=== PATIENT | female | born 1975 | race Caucasian/White ===

== ENCOUNTER 2020-03-15 05:40 | Day surgery (SDC) | payer MEDICARE, MEDICAID ==
[2020-03-08 14:58] LABS: CLARITY,URINE SLIGHTLY CLOUDY (Clear); COLOR,URINE YELLOW (Yellow); GLUCOSE, URINE NEGATIVE (Neg); KETONES,URINE NEGATIVE (Neg); LEUKOCYTE ESTERASE ,URINE NEGATIVE (Neg); NITRITES, URINE NEGATIVE (Neg); OCCULT BLOOD,URINE LARGE (Neg); PH,URINE 5.5 (4.8-8.0); PROTEIN,URINE NEGATIVE (Neg); UROBILINOGEN,URINE 0.2 E.U/dL (0.2-1.0)
[2020-03-08 15:01] LABS: UA COLLECTION TYPE NON-SPECIFIED
[2020-03-08 15:02] LABS: BASOPHILS # (AUTO) 0.1 X10'3 (0-0.2); BASOPHILS % (AUTO) 0.7 % (0-1); EOSINOPHILS # (AUTO) 0.4 X10'3 (0-0.9); EOSINOPHILS % (AUTO) 3.6 % (0-6); LYMPHOCYTES # (AUTO) 2.1 X10'3 (1.1-4.8); LYMPHOCYTES % (AUTO) 17.8 % (21-51); MEAN CORPUSCULAR HGB CONC 32.1 g/dL (33.0-36.5); MEAN PLATELET VOLUME 8.8 FL (7.4-10.4); MONOCYTES # (AUTO) 0.8 X10'3 (0-0.9); MONOCYTES % (AUTO) 6.9 % (2-12); NEUTROPHILS # (AUTO) 8.4 X10'3 (1.8-7.7); PRE OP HEMATOCRIT 38.3 % (35.0-45.0); PRE OP HEMOGLOBIN 12.3 g/dL (12.0-16.0); PRE OP PLATELET COUNT 377 X10'3 (140-440); RED BLOOD COUNT 4.73 X10'6 (4.20-5.60); RED CELL DISTRIBUTION WIDTH 17.6 % (11.5-14.5)
[2020-03-08 15:06] LABS: HCG SERUM QL NEGATIVE
[2020-03-08 15:08] LABS: BACTERIA,URINE FEW /HPF (Neg); MUCUS STRANDS FEW /LPF (Neg); RBC,URINE 50-100 /HPF (0-2); SQUAMOUS EPITHELIAL CELL,UR FEW /LPF (FEW); WBC,URINE 0-4 /HPF (0-4)
[2020-03-08 15:18] LABS: ALBUMIN 3.8 G/DL (3.4-5.0); ALBUMIN/GLOBULIN RATIO 0.9 (1.1-1.5); ALKALINE PHOSPHATASE 101 IU/L (46-116); BLOOD UREA NITROGEN 16 MG/DL (7-18); CALCIUM 9.8 MG/DL (8.5-10.1); CHLORIDE 103 MMOL/L (99-107); CREATININE 0.84 MG/DL (0.40-0.90); PRE OP ALT 18 U/L (30-65); PRE OP ANION GAP 6 (8-16); PRE OP AST 13 U/L (10-37); PRE OP BILIRUB, TOTAL 0.2 MG/DL (0.0-1.0); PRE OP GLUCOSE 141 MG/DL (70-104); PRE OP POTASSIUM 4.5 MMOL/L (3.4-5.1); PRE OP SODIUM 136 MMOL/L (135-145); TOTAL CARBON DIOXIDE 26.6 MMOL/L (24-32); TOTAL PROTEIN 7.9 G/DL (6.4-8.2); eGFR 73 ML/MIN
[~2020-03-15] VITALS: Ht 177.8 cm; Wt 135.9 kg
[~2020-03-15 05:40] MED LIST: BUSP10TA11 PO; CITA20TA28 PO; FERR324T12 PO; FLUT1DIS4 INH; LAMO200T24 PO; LEVO5TAB29 PO; LYR75C PO; METF-438 PO; MIRT45TA79 PO; OMEP40CA13 PO; PREG75CA75 PO; TRAM50TA2 PO; ceFAZolin inj. 3,000 MG in normal saline 100ml IV soln 100 ML IV ONE; famotidine 20mg tablet PO ONE; ringers solution, lacted 1,000 ML IV SCH
[2020-03-15] MEDS ORDERED: LIDOcaine 1% (10mg/ml) 2ml vial ONE (06:19)
[2020-03-15] MEDS ORDERED: BUPIVAcaine/PF 2.5mg/ml (0.25%) 10ml vial ONE (06:40)
[2020-03-15] MEDS ORDERED: bacitracin 15gm ointment TP ONE ×2 (06:40→13:36)
[2020-03-15] MEDS ORDERED: ringers solution, lacted 1,000 ML IV SCH (06:56)
[2020-03-15] MEDS ORDERED: ondansetron/PF 4mg/2ml inj IV PRN (07:00)
[2020-03-15] MEDS ORDERED: fentaNYL/PF 50MCG/1 ML 2ML syringe IV PRN ×2 (07:00)
[2020-03-15] MEDS ORDERED: meperidine/PF 25mg/ml syringe IV PRN ×3 (07:00)
[2020-03-15] MEDS ORDERED: proCHLORperazine 10 MG/2 ml inj IV PRN (07:00)
[2020-03-15] MEDS ORDERED: acetaminophen 1,000mg/100ml IV 100 ML IV PRN (07:00)
[2020-03-15] MEDS ORDERED: sevoflurane 250ml liquid IH ONE (07:00)
[2020-03-15] MEDS ORDERED: midazolam 2 mg/2 ml injection ONE (07:02)
[2020-03-15] MEDS ORDERED: fentaNYL/PF 50MCG/1 ML 2ML syringe ONE (07:02)
[2020-03-15] MEDS ORDERED: propofol inj 20 ML IV ONE (07:20)
[2020-03-15] MEDS ORDERED: ondansetron/PF 4mg/2ml inj ONE (07:20)
[2020-03-15] MEDS ORDERED: LIDOcaine 2% (20mg/ml) 5ml vial ONE (07:20)
[2020-03-15] MEDS ORDERED: dexamethasone sod phosphate 4mg/ml inj. ONE (07:21)
[2020-03-15] MEDS ORDERED: BUPIVAcaine/PF 2.5 mg/ml (0.25%) 30ml vial ONE (07:28)
[2020-03-15 07:45] VITALS: BP 166/96
--- NOTE | 2020-03-15 07:45 | NUR ---
Received from OR via [facility] , accompanied by Anesthesiologist MELVIN and report given by Anesthesiolgist. PATIENT WITH 20G PIV IN RIGHT HAND RUNNING LR AT 100. DENIES PAIN. LEFT FOOT DRESSING IS CDI. WIGGLES TOES. + CAP REFILL. Addendum: 03/15/20 at 0751 by Evgeny Limon RN, RN Amended: Links added.
[2020-03-15 07:55] VITALS: BP 145/88
[2020-03-15 08:05] VITALS: BP 132/89
[2020-03-15 08:15] VITALS: BP 118/87
--- NOTE | 2020-03-15 08:25 | NUR ---
All dc criteria for discharge home has been met. IV taken out without complications. All questions answered regarding dc paperwork. Vss. Significant other present to take patient home. Dressings cdi and vital signs stable. Taken out via wheelchair to personal vehicle where patient taken home by family/friend. Addendum: 03/15/20 at 0831 by Evgeny Limon RN, RN Amended: Links added.
[2020-03-15 10:07] VITALS: BP 152/84
[2020-03-15] MEDS ORDERED: BUPIVAcaine/PF 2.5 mg/ml (0.25%) 30ml vial IJ ONE (13:35)
== END 2020-03-15 08:25 | disposition home or self-care (01) ==
LOC: PAS 05:40
PROVIDERS: ATTEND Podiatrist Foot & Ankle Surgery
DX: M67.472 Ganglion, left ankle and foot (principal); E11.9 Type 2 diabetes mellitus without complications; J44.9 Chronic obstructive pulmonary disease, unspecified; F41.9 Anxiety disorder, unspecified; F31.9 Bipolar disorder, unspecified; F43.10 Post-traumatic stress disorder, unspecified; D64.9 Anemia, unspecified; E66.01 Morbid (severe) obesity due to excess calories; Z68.41 Body mass index [BMI] 40.0-44.9, adult; Z98.84 Bariatric surgery status; Z88.5 Allergy status to narcotic agent; Z88.8 Allergy status to other drugs, medicaments and biological substances; Z79.899 Other long term (current) drug therapy; Z79.84 Long term (current) use of oral hypoglycemic drugs; Z91.09 Other allergy status, other than to drugs and biological substances; Z11.59 Encounter for screening for other viral diseases
CPT/HCPCS: 28090; 36415; 80053; 81001; 82948; 84703; 85025; A6223; J0690; J1100; J2001; J2250; J2405; J2704; J3010; J3490; U0003; 88304; A4215; A4618; A6449; A7000; J7120

== ENCOUNTER 2020-07-05 08:09 | Day surgery (SDC) | payer MEDICARE, MEDICAID ==
[2020-06-28 15:07] LABS: BASOPHILS # (AUTO) 0.1 X10'3 (0-0.2); BASOPHILS % (AUTO) 1.1 % (0-1); EOSINOPHILS # (AUTO) 0.5 X10'3 (0-0.9); EOSINOPHILS % (AUTO) 4.2 % (0-6); LYMPHOCYTES # (AUTO) 2.6 X10'3 (1.1-4.8); LYMPHOCYTES % (AUTO) 21.2 % (21-51); MEAN CORPUSCULAR HEMOGLOBIN 27.1 PG (27.0-31.0); MEAN CORPUSCULAR HGB CONC 32.6 g/dL (33.0-36.5); MEAN CORPUSCULAR VOLUME 83.2 FL (78-98); MEAN PLATELET VOLUME 8.7 FL (7.4-10.4); MONOCYTES # (AUTO) 0.9 X10'3 (0-0.9); MONOCYTES % (AUTO) 7.3 % (2-12); NEUTROPHILS # (AUTO) 8.2 X10'3 (1.8-7.7); NEUTROPHILS % (AUTO) 66.2 % (42-75); PRE OP HEMATOCRIT 37.8 % (35.0-45.0); PRE OP HEMOGLOBIN 12.3 g/dL (12.0-16.0); PRE OP PLATELET COUNT 340 X10'3 (140-440); RED BLOOD COUNT 4.54 X10'6 (4.20-5.60); RED CELL DISTRIBUTION WIDTH 14.8 % (11.5-14.5)
[2020-06-28 15:31] LABS: ALBUMIN 3.5 G/DL (3.4-5.0); ALBUMIN/GLOBULIN RATIO 0.8 (1.1-1.5); ALKALINE PHOSPHATASE 101 IU/L (46-116); BLOOD UREA NITROGEN 10 MG/DL (7-18); BUN/CREATININE RATIO 13.2 (6.6-38.0); CALCIUM 9.3 MG/DL (8.5-10.1); CHLORIDE 103 MMOL/L (99-107); CREATININE 0.76 MG/DL (0.40-0.90); PRE OP ALT 16 U/L (30-65); PRE OP ANION GAP 10 (8-16); PRE OP AST 17 U/L (10-37); PRE OP BILIRUB, TOTAL 0.1 MG/DL (0.0-1.0); PRE OP GLUCOSE 169 MG/DL (70-104); PRE OP POTASSIUM 4.4 MMOL/L (3.4-5.1); PRE OP SODIUM 136 MMOL/L (135-145); TOTAL CARBON DIOXIDE 23.2 MMOL/L (24-32); TOTAL PROTEIN 7.7 G/DL (6.4-8.2); eGFR 82 ML/MIN
[2020-06-28 15:58] LABS: HCG SERUM QL NEGATIVE
[~2020-07-05] VITALS: Ht 177.8 cm; Wt 139.0 kg
[~2020-07-05 08:09] MED LIST changes: +ACET325C6 PO; +CYCL-1 PO; -FERR324T12 PO; -LEVO5TAB29 PO; +LORA-269 PO; +SITA100T15 PO; -ceFAZolin inj. 3,000 MG in normal saline 100ml IV soln 100 ML IV ONE; +cefazolin/dext.iso 2gm/50ml 50 ML IV ONE
[2020-07-05 08:25] VITALS: BP 119/74
[2020-07-05] MEDS ORDERED: SITA100T11 PO (08:47)
[2020-07-05] MEDS ORDERED: LIDOcaine 1% (10mg/ml) 2ml vial ONE (08:50)
[2020-07-05] MEDS ORDERED: LIDOcaine 0.5% (5mg/ml) 50ml vial ONE (09:49)
[2020-07-05] MEDS ORDERED: BUPIVAcaine/PF 2.5mg/ml (0.25%) 10ml vial ONE (09:49)
[2020-07-05] MEDS ORDERED: ondansetron/PF 4mg/2ml inj IV PRN (10:15)
[2020-07-05] MEDS ORDERED: meperidine/PF 25mg/ml syringe IV PRN ×3 (10:15)
[2020-07-05] MEDS ORDERED: ringers solution, lacted 1,000 ML IV SCH (10:15)
[2020-07-05] MEDS ORDERED: proCHLORperazine 10 MG/2 ml inj IV PRN (10:15)
[2020-07-05] MEDS ORDERED: fentaNYL/PF 50MCG/1 ML 2ML syringe ONE (10:38)
[2020-07-05] MEDS ORDERED: midazolam 2 mg/2 ml injection ONE ×2 (10:44)
[2020-07-05 10:57] VITALS: BP 129/78
--- NOTE | 2020-07-05 10:57 | NUR ---
Received from OR via , accompanied by Anesthesiologist DR SANCHEZ and report given by Anesthesiolgist. AWAKE AND ADITYA PAIN. VITALS STABLE. DRESSING/SPLINT DI. FINGERS COOL AND PINK.
[2020-07-05 11:07] VITALS: BP 135/77
[2020-07-05 11:17] VITALS: BP 128/79
[2020-07-05 11:27] VITALS: BP 130/80
[2020-07-05] MEDS ORDERED: HYDROcodone/acetaminophen 10/325mg tab PO ONE (11:45)
--- NOTE | 2020-07-05 11:47 | NUR ---
AWAKE AND ORIENTED. VITALS STABLE. SPLINT DI. STATES MIN DISCOMFORT. HOME WITH A FRIEND AT THIS TIME.
== END 2020-07-05 11:47 | disposition home or self-care (01) ==
LOC: PAS 08:09
PROVIDERS: ATTEND Orthopaedic Surgery Hand Surgery
DX: G56.02 Carpal tunnel syndrome, left upper limb (principal); M79.602 Pain in left arm; Z20.828 Contact with and (suspected) exposure to other viral communicable diseases; Z98.84 Bariatric surgery status; E66.01 Morbid (severe) obesity due to excess calories; Z68.41 Body mass index [BMI] 40.0-44.9, adult; Z87.891 Personal history of nicotine dependence; E11.9 Type 2 diabetes mellitus without complications
CPT/HCPCS: 29848; 36415; 80053; 82948; 84703; 85025; 87635; 93005; J2001; J2250; J3010; J3490; A4215; A7000; J7120

== ENCOUNTER 2020-07-18 21:18 | Emergency (ER) | payer MEDICARE, MEDICAID ==
[~2020-07-18] VITALS: Ht 177.8 cm; Wt 136.4 kg
[~2020-07-18 21:18] MED LIST changes: +SITA100T11 PO; -cefazolin/dext.iso 2gm/50ml 50 ML IV ONE; -famotidine 20mg tablet PO ONE; -ringers solution, lacted 1,000 ML IV SCH
[2020-07-18 22:07] LABS: BASOPHILS # (AUTO) 0.1 X10'3 (0-0.2); BASOPHILS % (AUTO) 0.8 % (0-1); EOSINOPHILS # (AUTO) 0.6 X10'3 (0-0.9); EOSINOPHILS % (AUTO) 4.8 % (0-6); HEMATOCRIT 38.4 % (35.0-45.0); HEMOGLOBIN 12.2 g/dl (12.0-16.0); LYMPHOCYTES # (AUTO) 2.9 X10'3 (1.1-4.8); LYMPHOCYTES % (AUTO) 22.3 % (21-51); MEAN CORPUSCULAR HEMOGLOBIN 26.4 PG (27.0-31.0); MEAN CORPUSCULAR HGB CONC 31.8 g/dL (33.0-36.5); MEAN PLATELET VOLUME 8.8 FL (7.4-10.4); MONOCYTES # (AUTO) 1.2 X10'3 (0-0.9); MONOCYTES % (AUTO) 8.9 % (2-12); NEUTROPHILS # (AUTO) 8.2 X10'3 (1.8-7.7); NEUTROPHILS % (AUTO) 63.2 % (42-75); PLATELET COUNT 377 X10'3 (140-440); RED BLOOD COUNT 4.63 X10'6 (4.20-5.60); RED CELL DISTRIBUTION WIDTH 14.5 % (11.5-14.5)
[2020-07-18 22:12] LABS: CLARITY,URINE CLEAR (Clear); COLOR,URINE YELLOW (Yellow); GLUCOSE, URINE NEGATIVE (Neg); KETONES,URINE NEGATIVE (Neg); LEUKOCYTE ESTERASE ,URINE TRACE (Neg); NITRITES, URINE NEGATIVE (Neg); OCCULT BLOOD,URINE NEGATIVE (Neg); PROTEIN,URINE NEGATIVE (Neg); URINE HCG NEGATIVE (NEG); UROBILINOGEN,URINE 0.2 E.U/dL (0.2-1.0)
[2020-07-18 22:14] LABS: UA COLLECTION TYPE CLN CATCH MIDSTREAM
[2020-07-18 22:18] LABS: BACTERIA,URINE 1+ /HPF (Neg); RBC,URINE NONE SEEN /HPF (0-2); SQUAMOUS EPITHELIAL CELL,UR MODERATE /LPF (FEW); WBC,URINE 0-4 /HPF (0-4)
[2020-07-18 22:27] LABS: ALANINE AMINOTRANSFERASE 33 U/L (12-78); ALBUMIN 3.7 G/DL (3.4-5.0); ALBUMIN/GLOBULIN RATIO 0.8 (1.1-1.5); ALKALINE PHOSPHATASE 110 IU/L (46-116); AMYLASE 40 U/L (25-115); ANION GAP 9 (8-16); ASPARTATE AMINO TRANSFERASE 18 U/L (10-37); BILIRUBIN,TOTAL 0.2 MG/DL (0.1-1.0); BLOOD UREA NITROGEN 13 MG/DL (7-18); BUN/CREATININE RATIO 18.6 (6.6-38.0); CALCIUM 9.6 MG/DL (8.5-10.1); CHLORIDE 99 MMOL/L (99-107); GLUCOSE 153 MG/DL (70-104); LIPASE 109 U/L (73-393); POTASSIUM 3.9 MMOL/L (3.5-5.1); SODIUM 135 MMOL/L (135-145); TOTAL CARBON DIOXIDE 26.6 MMOL/L (24-32); TOTAL PROTEIN 8.1 G/DL (6.4-8.2); eGFR 90 ML/MIN
[2020-07-18] MEDS ORDERED: HYDROcodone/acetaminophen 5mg/325mg tablet PO ONE (23:05)
[2020-07-19 00:02] VITALS: BP 129/91
== END 2020-07-19 00:02 | disposition home or self-care (01) ==
LOC: ER 21:19
DX: R10.9 Unspecified abdominal pain (principal); J45.909 Unspecified asthma, uncomplicated; K21.9 Gastro-esophageal reflux disease without esophagitis; E11.9 Type 2 diabetes mellitus without complications; F41.9 Anxiety disorder, unspecified; F31.9 Bipolar disorder, unspecified; Z98.61 Coronary angioplasty status; Z88.5 Allergy status to narcotic agent; Z88.8 Allergy status to other drugs, medicaments and biological substances; Z79.899 Other long term (current) drug therapy
CPT/HCPCS: 36415; 74176; 80053; 81001; 81025; 82150; 83690; 85025; 87088; 99284

== ENCOUNTER 2020-08-02 06:08 | Day surgery (SDC) | payer MEDICARE, MEDICAID ==
[2020-07-26 14:19] LABS: BASOPHILS # (AUTO) 0.1 X10'3 (0-0.2); BASOPHILS % (AUTO) 0.7 % (0-1); EOSINOPHILS % (AUTO) 7.1 % (0-6); LYMPHOCYTES # (AUTO) 2.4 X10'3 (1.1-4.8); MEAN CORPUSCULAR HEMOGLOBIN 26.5 PG (27.0-31.0); MEAN CORPUSCULAR VOLUME 82.6 FL (78-98); MONOCYTES # (AUTO) 0.9 X10'3 (0-0.9); MONOCYTES % (AUTO) 6.7 % (2-12); NEUTROPHILS # (AUTO) 9.6 X10'3 (1.8-7.7); NEUTROPHILS % (AUTO) 68.5 % (42-75); PRE OP HEMATOCRIT 39.5 % (35.0-45.0); PRE OP HEMOGLOBIN 12.6 g/dL (12.0-16.0); PRE OP PLATELET COUNT 397 X10'3 (140-440); RED BLOOD COUNT 4.78 X10'6 (4.20-5.60); RED CELL DISTRIBUTION WIDTH 14.6 % (11.5-14.5)
[2020-07-26 14:31] LABS: ALBUMIN 3.8 G/DL (3.4-5.0); ALBUMIN/GLOBULIN RATIO 0.8 (1.1-1.5); ALKALINE PHOSPHATASE 111 IU/L (46-116); BLOOD UREA NITROGEN 13 MG/DL (7-18); BUN/CREATININE RATIO 15.3 (6.6-38.0); CALCIUM 9.7 MG/DL (8.5-10.1); CHLORIDE 102 MMOL/L (99-107); CREATININE 0.85 MG/DL (0.40-0.90); PRE OP ALT 29 U/L (30-65); PRE OP ANION GAP 12 (8-16); PRE OP AST 13 U/L (10-37); PRE OP BILIRUB, TOTAL 0.2 MG/DL (0.0-1.0); PRE OP POTASSIUM 4.1 MMOL/L (3.4-5.1); PRE OP SODIUM 137 MMOL/L (135-145); TOTAL CARBON DIOXIDE 23.5 MMOL/L (24-32); TOTAL PROTEIN 8.4 G/DL (6.4-8.2); eGFR 72 ML/MIN
[2020-07-26 14:33] LABS: PRE OP GLUCOSE 254 MG/DL (70-104)
[~2020-08-02] VITALS: Ht 177.8 cm; Wt 133.8 kg
[~2020-08-02 06:08] MED LIST changes: +LIDOcaine 1% (10mg/ml) 2ml vial ONE; +MESSAGE TO NURSING PO ONE; +famotidine 10mg tablet PO ONE; +ringers solution, lacted 1,000 ML IV SCH
[2020-08-02 06:15] VITALS: BP 134/72
[2020-08-02] MEDS ORDERED: cefazolin/dext.iso 2gm/50ml 50 ML IV ONE (06:20)
[2020-08-02] MEDS ORDERED: ceFAZolin 1GM/D5W- ADD-VANTAGE 50 ML IV ONE (06:50)
[2020-08-02] MEDS ORDERED: LIDOcaine 0.5% (5mg/ml) 50ml vial ONE (07:31)
[2020-08-02] MEDS ORDERED: fentaNYL/PF 50MCG/1 ML 2ML syringe ONE ×2 (07:36→08:17)
[2020-08-02] MEDS ORDERED: midazolam 2 mg/2 ml injection ONE ×2 (07:37→08:11)
[2020-08-02] MEDS ORDERED: BUPIVAcaine/PF 2.5mg/ml (0.25%) 10ml vial ONE (07:46)
[2020-08-02 08:30] VITALS: BP 120/65
--- NOTE | 2020-08-02 08:30 | NUR ---
ADMITTED TO PACU FROM OR ACCOMPANIED BY ANESTHESIA. INTIAL PHYSICAL ASSESSMENT DONE AND RECORDED. REPORT RECEIVED FROM ANESTHESIA.
[2020-08-02] MEDS ORDERED: propofol inj 20 ML IV ONE (08:35)
[2020-08-02] MEDS ORDERED: labetalol 20mg/4ml (5mg/ml) syringe IV ONE (08:35)
[2020-08-02 08:40] VITALS: BP 133/66
[2020-08-02 08:50] VITALS: BP 130/66
--- NOTE | 2020-08-02 09:00 | NUR ---
DISCHARGE CRITERIA MET, DISCHARGE INSTRUCTIONS GIVEN, DEMONSTRATES VERBAL UNDERSTANDING. DISCHARGED HOME IN GOOD CONDITION.
== END 2020-08-02 09:00 | disposition home or self-care (01) ==
LOC: PAS 06:08
PROVIDERS: ATTEND Orthopaedic Surgery Hand Surgery
DX: G56.01 Carpal tunnel syndrome, right upper limb (principal); J44.9 Chronic obstructive pulmonary disease, unspecified; I10 Essential (primary) hypertension; F41.9 Anxiety disorder, unspecified; F43.10 Post-traumatic stress disorder, unspecified; F31.9 Bipolar disorder, unspecified; F42.9 Obsessive-compulsive disorder, unspecified; D64.9 Anemia, unspecified; M19.90 Unspecified osteoarthritis, unspecified site; E11.9 Type 2 diabetes mellitus without complications; E66.9 Obesity, unspecified; Z68.41 Body mass index [BMI] 40.0-44.9, adult; Z79.899 Other long term (current) drug therapy; Z20.828 Contact with and (suspected) exposure to other viral communicable diseases; Z91.09 Other allergy status, other than to drugs and biological substances; Z88.8 Allergy status to other drugs, medicaments and biological substances; Z98.84 Bariatric surgery status; Z88.5 Allergy status to narcotic agent; Z98.890 Other specified postprocedural states; Z72.89 Other problems related to lifestyle; Z87.891 Personal history of nicotine dependence; Z79.84 Long term (current) use of oral hypoglycemic drugs
CPT/HCPCS: 29848; 36415; 76937; 80053; 82948; 85025; 87635; J2001; J2250; J2704; J3010; J3490; A4215; A7000; J7120

== ENCOUNTER 2020-11-29 14:15 | Emergency (ER) | payer MEDICARE, MEDICAID ==
[~2020-11-29] VITALS: Ht 177.8 cm; Wt 136.4 kg
[~2020-11-29 14:15] MED LIST changes: -LIDOcaine 1% (10mg/ml) 2ml vial ONE; -MESSAGE TO NURSING PO ONE; -famotidine 10mg tablet PO ONE; -ringers solution, lacted 1,000 ML IV SCH
[2020-11-29] MEDS ORDERED: HYDR-3965 PO (15:08)
[2020-11-29 15:21] VITALS: BP 153/90
== END 2020-11-29 15:23 | disposition home or self-care (01) ==
LOC: ER 14:15
DX: G57.12 Meralgia paresthetica, left lower limb (principal); E78.00 Pure hypercholesterolemia, unspecified; J45.909 Unspecified asthma, uncomplicated; K21.9 Gastro-esophageal reflux disease without esophagitis; E11.9 Type 2 diabetes mellitus without complications; F41.9 Anxiety disorder, unspecified; F31.9 Bipolar disorder, unspecified; Z86.2 Personal history of diseases of the blood and blood-forming organs and certain disorders involving the immune mechanism; Z87.442 Personal history of urinary calculi; Z98.890 Other specified postprocedural states; Z88.8 Allergy status to other drugs, medicaments and biological substances; Z79.899 Other long term (current) drug therapy
CPT/HCPCS: 99283

== ENCOUNTER 2020-12-16 17:48 | Emergency (ER) | payer MEDICARE, MEDICAID ==
[~2020-12-16] VITALS: Ht 177.8 cm; Wt 136.4 kg
[~2020-12-16 17:48] MED LIST changes: +HYDR-3965 PO; -SITA100T15 PO
[2020-12-16 17:52] VITALS: BP 143/93
[2020-12-16] MEDS ORDERED: penicillin V potassium 500mg tablet PO ONE (18:20)
[2020-12-16] MEDS ORDERED: ketorolac tromethamine 15mg/ml inj. IM ONE (18:20)
[2020-12-16] MEDS ORDERED: PENI500T2 PO (18:23)
== END 2020-12-16 18:40 | disposition home or self-care (01) ==
LOC: ER 17:49
DX: K05.10 Chronic gingivitis, plaque induced (principal); E78.00 Pure hypercholesterolemia, unspecified; J45.909 Unspecified asthma, uncomplicated; K21.9 Gastro-esophageal reflux disease without esophagitis; E11.9 Type 2 diabetes mellitus without complications; M79.7 Fibromyalgia; Z87.440 Personal history of urinary (tract) infections; Z86.2 Personal history of diseases of the blood and blood-forming organs and certain disorders involving the immune mechanism; Z98.84 Bariatric surgery status
CPT/HCPCS: 96372; 99284; J1885

== ENCOUNTER 2022-05-08 20:42 | Emergency (ER) | payer MEDICARE, MEDICAID ==
[~2022-05-08] VITALS: Ht 177.8 cm; Wt 140.9 kg
[~2022-05-08 20:42] MED LIST changes: -HYDR-3965 PO; -OMEP40CA13 PO; +OMEP40CA21 PO
[2022-05-08 20:47] VITALS: BP 151/82
[2022-05-08] MEDS ORDERED: amox tr/potassium clavulanate 875/125mg TAB PO ONE (22:50)
[2022-05-08] MEDS ORDERED: HYDR-3965 PO (23:27)
[2022-05-08] MEDS ORDERED: AMOX-117 PO (23:27)
== END 2022-05-08 23:33 | disposition home or self-care (01) ==
LOC: ER 20:42
DX: K04.7 Periapical abscess without sinus (principal); E78.00 Pure hypercholesterolemia, unspecified; J44.9 Chronic obstructive pulmonary disease, unspecified; E11.9 Type 2 diabetes mellitus without complications; F31.9 Bipolar disorder, unspecified; D64.9 Anemia, unspecified; Z87.442 Personal history of urinary calculi; Z79.899 Other long term (current) drug therapy; Z88.6 Allergy status to analgesic agent; Z79.84 Long term (current) use of oral hypoglycemic drugs; Z79.1 Long term (current) use of non-steroidal anti-inflammatories (NSAID)
CPT/HCPCS: 99283

== ENCOUNTER 2023-02-02 16:45 | Emergency (ER) | payer OTHER, MEDICARE, MEDICAID ==
[~2023-02-02] VITALS: Ht 177.8 cm; Wt 136.4 kg
--- NOTE | 2023-02-02 17:16 | NUR ---
Pt to CT at this time
[2023-02-02] MEDS ORDERED: HYDR-3965 PO ×2 (18:39→19:08)
[2023-02-02] MEDS ORDERED: cyclobenzaprine 10mg tablet PO ONE (18:40)
[2023-02-02] MEDS ORDERED: HYDROcodone/acetaminophen 5mg/325mg tablet PO ONE (18:40)
[2023-02-02] MEDS ORDERED: ketorolac trometh. 30mg/ml inj. IM ONE (18:40)
[2023-02-02 19:17] VITALS: BP 155/87
== END 2023-02-02 19:20 | disposition home or self-care (01) ==
LOC: ER 16:49
DX: S06.0X0A Concussion without loss of consciousness, initial encounter (principal); M79.18 Myalgia, other site; M54.2 Cervicalgia; E78.00 Pure hypercholesterolemia, unspecified; J45.909 Unspecified asthma, uncomplicated; K21.9 Gastro-esophageal reflux disease without esophagitis; E11.9 Type 2 diabetes mellitus without complications; F41.9 Anxiety disorder, unspecified; F31.9 Bipolar disorder, unspecified; Z98.890 Other specified postprocedural states; Z87.442 Personal history of urinary calculi; Z88.5 Allergy status to narcotic agent; Z88.8 Allergy status to other drugs, medicaments and biological substances; Z79.899 Other long term (current) drug therapy; Z79.84 Long term (current) use of oral hypoglycemic drugs; V89.2XXA Person injured in unspecified motor-vehicle accident, traffic, initial encounter; Y93.89 Activity, other specified; Y92.488 Other paved roadways as the place of occurrence of the external cause; Y99.8 Other external cause status
CPT/HCPCS: 70450; 72125; 96372; 99285; J1885; 99281

== ENCOUNTER 2024-10-15 13:57 | Emergency (ER) | payer MEDICAID, MEDICARE ==
[~2024-10-15 13:57] MED LIST changes: +HYDR-3965 PO; -PREG75CA75 PO; +PREG75CA76 PO
[2024-10-15 14:27] VITALS: BP 140/80; PULSE 79; RESP 18; TEMP 97.6; O2SAT 97
== END 2024-10-15 16:05 | disposition home or self-care (01) ==
LOC: ER 13:58
DX: R60.0 Localized edema (principal); F31.9 Bipolar disorder, unspecified; E78.00 Pure hypercholesterolemia, unspecified; E11.9 Type 2 diabetes mellitus without complications; J45.909 Unspecified asthma, uncomplicated; K21.9 Gastro-esophageal reflux disease without esophagitis; M79.7 Fibromyalgia; Z87.442 Personal history of urinary calculi; Z88.8 Allergy status to other drugs, medicaments and biological substances; Z98.84 Bariatric surgery status
CPT/HCPCS: 93971; 99284

== ENCOUNTER 2025-03-14 16:36 | Emergency (ER) | payer MEDICAID ==
[~2025-03-14] VITALS: Ht 177.8 cm; Wt 138.3 kg
[~2025-03-14 16:36] MED LIST changes: +CITA-178 PO; -CITA20TA28 PO
[2025-03-14 16:41] VITALS: BP 126/71; PULSE 94; TEMP 97.9; O2SAT 95
--- NOTE | 2025-03-14 18:16 | Physician Documentation ---
History of Present Illness ~ Chief Complaint: Knee Pain Stated Complaint: R KNEE PAIN Time Seen by MD: 17:34 Primary Medical Doctor: Geovanny; [facility] HPI This is a 49-year-old female who presents with two weeks of progressively worsening right knee pain worse in lateral aspect of her knee, patient reports episodes of popping, clicking, and catching" sensation. Patient reports that she has history of rheumatoid arthritis and osteoarthritis which she has prescribed medications for, including tramadol, though these medications are not effective for managing this pain. Patient reports that she has been seen by primary care provider for this has initiated outpatient workup though recommended coming to the emergency department if pain was not well controlled therefore patient reported to the emergency department. Patient reports no fever or chills. Patient additionally reports that she has an upcoming orthopedic procedure on right ankle due to an injury to the ligaments of the right ankle. She reports no other acute symptoms or concerns. Tetanus witin 5 years: No Medication Reconciliation Allergies: Coded Allergies: hydromorphone HCl (Unverified Allergy, Severe, HIVES, RESPIRATORY ARREST, 05/08/22) HIVES, RESPIRATORY ARREST adhesive (Verified Allergy, Unknown, rash, blister, 05/08/22) Uncoded Allergies: NSAIDS (Allergy, Severe, vomiting, 05/08/22) Scheduled Buspirone Hcl* (Buspar*), 1 TAB PO BID, (Reported) Citalopram Hydrobromide* (Celexa*), 60 MG PO HS, (Reported) Fluticasone/Salmeterol (Advair 250-50 Diskus), 1 PUFFS INH Q12H, (Reported) Hydrocodone Bit/Acetaminophen 5/325 MG (Richland 5/325 MG), 1 TABLET PO BID Lamotrigine (Lamotrigine), 200 MG PO BID, (Reported) Metformin HCl (Metformin HCl), 1 TAB PO Q12H, (Reported) Mirtazapine (Mirtazapine), 1 TAB PO HS, (Reported) Omeprazole (Prilosec), 1 CAP PO DAILY, (Reported) Pregabalin (Pregabalin), 1 CAP PO DAILY, (Reported) Pregabalin (LYRICA capsule), 2 CAP PO QPM, (Reported) Sitagliptin Phosphate (Januvia), 100 MG PO DAILY, (Reported) Scheduled PRN Acetaminophen (Tylenol), 500 MG PO PRN PRN for pain, (Reported) Cyclobenzaprine* (Cyclobenzaprine*), 1 TAB PO HS PRN for sleep, (Reported) Hydrocodone Bit/Acetaminophen 5/325 MG (Rich[place] 5/325 MG), 1 TAB PO Q6H PRN for pain Lorazepam (Ativan), 0.5 TAB PO Q8H PRN for anxiety, (Reported) Tramadol HCl (Tramadol HCl), 50 MG PO DAILY PRN for pain, (Reported) Past Medical History Past Medical History: Vertigo, High Cholesterol, Asthma, GERD, Anemia, Kidney Stones, Diabetes, Fibromyalgia, Anxiety, Bipolar Past Surgical History: gastric bypass Alcohol Use: Rarely Drug Use: none Lives In: Home Review of Systems ROS Right knee pain as stated above in the HPI, otherwise all systems are reviewed and negative. Physical Exam Vital Signs: Temperature: 97.9, Heart Rate: 94, Respiratory Rate: 18, BP: 126/71, Pulse Oximetry: 95, Weight: 138.350 Oxygen Flow Rate: 0 Physical Exam VITALS: Reviewed and as above. GENERAL: Alert, nontoxic appearing, no apparent distress. RESPIRATORY: No increased work of breathing, no respiratory distress, speaking in full clear sentences MUSCULOSKELETAL: Right knee range of motion intact with pain elicited interior portion of lateral knee with passive extension to full extension otherwise nonpainful with passive ROM, tenderness to lateral joint line. No swelling or erythema, or ecchymosis of the knee, knee otherwise nontender to palpation. Right foot pedal pulse intact, brisk capillary refill, sensation intact Progress Results/Orders Results/Orders Vital Signs 03/14/25 03/14/25 16:41 18:35 Temp 97.9 Pulse 94 Resp 18 16 B/P (MAP) 126/71 Pulse Ox 95 O2 Flow Rate 0 EKG/XRAY/CT/US/VASC/MRI Bone/Soft Tissue X-Ray (Ext.) : Additional Comment RIGHT KNEE 4 VIEWS REASON FOR EXAM: KNEE PAIN TECHNIQUE: AP, lateral, oblique, and tunnel view of the right knee are submitted for review. COMPARISON: None FINDINGS: The bones demonstrate normal mineralization. No acute fracture or dislocation is identified. There is mild narrowing of medial and lateral compartments. There is quadriceps tendon enthesopathy. The soft tissues are grossly unremarkable. No significant knee effusion is identified. IMPRESSION: No acute fracture or dislocation. Electronically Signed by:PATTIE PERSAUD MD Date & Time: 03/14/251911 Dictated by: PATTIE PERSAUD MD Dictation date and time: 03/14/251911 I have reviewed and agree with the radiology report. I have reviewed and interpreted the imaging as: No fracture or dislocation Medical Decision Making Findings This is a 49-year-old female who presents with right knee pain most significant on the right lateral aspect of the knee with joint line tenderness to palpation significant on physical exam, it is reassuring the knee is otherwise non tender to palpation and is not exquisitely tender with range of motion, additionally there was no swelling or erythema on exam to make me suspicious for infective process. X-ray did not demonstrate evidence of fracture or dislocation. The limb is neurovascularly intact. The localized lateral knee pain along with the patient's description of occasional walking in popping sensation is consistent with a meniscal injury though all possibilities not been ruled out. Patient advised she will require outpatient follow up for management of his knee injury, as patient reported inadequate pain management at home with previously prescr ibed pain medications and describes pain as severe a prescription a short prescription for Rich[place] will be provided for breakthrough severe pain until patient can follow up with primary care provider. Patient is otherwise well- appearing with benign physical exam stable vital signs appropriate for outpatient follow up. [employer] database checked prior to opioid prescription. I have discussed with the patient the risks of addiction and overdose associated with use of opioids, including the increased risk of addiction to an opioid for an individual who is suffering from both mental and substance abuse disorders. I have discussed with the patient the danger of taking an opioid with a benzodiazepine, alcohol, or another central nervous system depressant. Knee Diff Dx:Considerations: Include: Abrasion, Arthritis, Contusion, DJD, Fracture-femur, Fracture-fibula, Fracture-patella, Fracture-tibia, Gout, Hematoma, Laceration, Meniscus injury, Neurovascular injury, Rheumatoid arthritis, Sprain, Sprain-MCL, Sprain-LCL, Sprain-ACL, Sprain-PCL Departure Disposition: 01 HOME / SELF CARE / HOMELESS Impression: Primary Impression: Knee pain Qualified Codes: M25.561 - Pain in right knee Condition: Improved Discharge Instructions: Acute Knee Pain, Adult Additional Instructions: Your knee pain is suspicious for meniscal injury, I have provided contact information for on-call orthopedist however they may need a referral through her primary care provider. In the meantime use the rice strategy of rest ice compression and elevation, see the attached home care instructions. Continue your home pain medication regime, for severe pain or pain not adequately controlled with your normal pain medication regime please use the prescribed Rich[place]. Please follow up with your primary care provider in the next few days. Please return to the emergency department for any new or worsening concerning symptoms. You have been prescribed an opioid medication, there are risks of addiction and overdose associated with the use of opioids. The risk of addiction to an opioid for increases for those suffering both from mental health and substance use disorders. The use of an opioid while taking other central nervous system depressants including but not limited to benzodiazepines or alcohol, or other opioids increases the risk of serious side effects that can include overdose or respiratory depression that can lead to serious injury or . Referrals: NO PRIMARY CARE PROVIDER (PCP) FRANCES MCLEAN MD Prescriptions Hydrocodone Bit/Acetaminophen 5/325 MG (Rich[place] 5/325 MG) 5 Mg/325 Mg Tablet 1 TAB PO Q6H PRN for pain, #12 TAB Prov: IBRAHIMA GRANGER 03/15/25 Hydrocodone Bit/Acetaminophen 5/325 MG (Rich[place] 5/325 MG) 5 Mg/325 Mg Tablet 1 TAB PO Q6H PRN for pain for 3 Days, #12 TAB Prov: ROBE BRIDGES 03/14/25 Education Educated: Patient Educated regarding: diagnosis, treatment, prognosis, need for follow up Signature Scribe Signature: No scribe Attestation: The note accurately reflects work and decisions made by me.LISSA Ayers 03/15/25 03:01 Addendum Sent additional script for Rich[place] [id number] p.o. q.6 12. To [facility] pharmacy due to in his heel pharmacy having difficulty fell on script. ROBE BRIDGES Mar 14, 2025 18:16 IBRAHIMA GRANGER Mar 15, 2025 17:26
[2025-03-14] MEDS ORDERED: HYDR-3965 PO (18:18)
[2025-03-14 18:35] VITALS: RESP 16
[2025-03-14] MEDS: HYDROcodone/acetaminophen 5mg/325mg tablet PO ONE (18:35)
--- NOTE | 2025-03-14 19:14 | RADIOLOGY REPORT ---
RIGHT KNEE 4 VIEWS REASON FOR EXAM: KNEE PAIN TECHNIQUE: AP, lateral, oblique, and tunnel view of the right knee are submitted for review. COMPARISON: None FINDINGS: The bones demonstrate normal mineralization. No acute fracture or dislocation is identified . There is mild narrowing of medial and lateral compartments. There is quadriceps tendon enthesopathy . The soft tissues are grossly unremarkable. No significant knee effusion is identified. IMPRESSION: No acute fracture or dislocation.
[2025-03-15] MEDS ORDERED: HYDR-3965 PO (17:25)
== END 2025-03-14 18:41 | disposition home or self-care (01) ==
LOC: ER 16:37
DX: M25.561 Pain in right knee (principal); E11.9 Type 2 diabetes mellitus without complications; E78.00 Pure hypercholesterolemia, unspecified; F31.9 Bipolar disorder, unspecified; J45.909 Unspecified asthma, uncomplicated; M79.7 Fibromyalgia; K21.9 Gastro-esophageal reflux disease without esophagitis; D64.9 Anemia, unspecified; Z88.8 Allergy status to other drugs, medicaments and biological substances; Z79.899 Other long term (current) drug therapy; Z79.84 Long term (current) use of oral hypoglycemic drugs; Z87.442 Personal history of urinary calculi
CPT/HCPCS: 73564; 99283